=== PATIENT | male | born 1970 | race Caucasian/White ===

== ENCOUNTER 2017-06-26 22:51 | Emergency (ER) | payer BC, OTHER ==
[~2017-06-26] VITALS: Ht 175.3 cm; Wt 90.9 kg
[2017-06-26] MEDS ORDERED: NAPR500T3 PO (23:09)
[2017-06-26] MEDS ORDERED: ROBA500T PO (23:09)
[2017-06-26] MEDS ORDERED: CYCL10TA PO (23:09)
[2017-06-26] MEDS ORDERED: METH1TAB40 PO (23:09)
[2017-06-26] MEDS ORDERED: DICL1GEL3 TD (23:13)
[2017-06-26] MEDS ORDERED: KETOROLAC 30 MG/ML VIAL (J1885) IV ONE (23:45)
[2017-06-27] MEDS ORDERED: PERC5TAB12 PO (01:08)
[2017-06-27] MEDS ORDERED: OXYCODONE/APAP 5MG/325MG(BULK FOR ED) 1 TABLET PO ONE (01:15)
[2017-06-27 01:23] VITALS: BP 120/70
== END 2017-06-27 01:24 | disposition home or self-care (01) ==
LOC: M ED 22:51 → EDBD 22:51 → M ED 06-27 01:24
DX: M54.5 Low back pain (principal); Z87.891 Personal history of nicotine dependence
CPT/HCPCS: 96374; 96375; 99283; J1885; J3360

== ENCOUNTER → 2017-12-14 | Outpatient (REF) | payer BC, OTHER | LOC: M LAB REF 18:00 | DX: D23.11 Other benign neoplasm of skin of right eyelid, including canthus (principal); L72.0 Epidermal cyst | CPT/HCPCS: 88304 ==

== ENCOUNTER → 2018-11-06 | Outpatient (REF) | payer OTHER ==
[~2018-11-06] MED LIST: CYCL10TA PO; DICL1GEL3 TD; METH1TAB40 PO; NAPR-885 PO; PERC5TAB12 PO; ROBA500T PO
[2018-11-06 21:06] LABS: CHLAMYDIA DNA AMPLIFICATION NEGATIVE (NEGATIVE); GC DNA AMPLIFICATION NEGATIVE (NEGATIVE)
== END ==
LOC: M SFHCLERA 09:35
PROVIDERS: ATTEND Nurse Practitioner Family
DX: N48.89 Other specified disorders of penis (principal)

== ENCOUNTER 2019-01-03 07:53 | Day surgery (SDC) | payer BC, OTHER ==
[~2019-01-03] VITALS: Ht 175.3 cm; Wt 95.4 kg
[2019-01-03] MEDS ORDERED: NS 1,000 ML IV ONE (08:15)
[2019-01-03] MEDS ORDERED: VITAD1000T PO (08:39)
[2019-01-03] MEDS ORDERED: PROPOFOL 200 MG/20 ML VIAL As Ordered ONE ×2 (09:09→09:38)
--- NOTE | 2019-01-03 09:32 | ROOR ---
Patient Name: Van Link Procedure Date: 01/03/2019 9:14 AM Date of : 1970 Age: 48 Room: [facility] Gender: Male Note Status: Finalized Procedure: Total Colonoscopy to Cecum + Biopsy Polypectomy Indications: Colon cancer screening in patient at increased risk: Family history of 1st-degree relative with colon polyps Providers: David Umanzor MD Referring MD: JAYESH SHAH JR, MD Requesting Provider: Medicines: Monitored Anesthesia Care Complications: No immediate complications. Procedure: Pre-Anesthesia Assessment: - The heart rate, respiratory rate, oxygen saturations, blood pressure, adequacy of pulmonary ventilation, and response to care were monitored throughout the procedure. The Colonoscope was introduced through the anus and advanced to the cecum, identified by appendiceal orifice and ileocecal valve. The colonoscopy was performed without difficulty. The patient tolerated the procedure well. The quality of the bowel preparation was excellent. Findings: The perianal and digital rectal examinations were normal. Non-bleeding internal hemorrhoids were found during retroflexion. The hemorrhoids were small and Grade I (internal hemorrhoids that do not prolapse). A small polyp was found at 50 cm proximal to the anus. The polyp was sessile. The polyp was removed with a jumbo cold forceps. Resection and retrieval were complete. The exam was otherwise without abnormality on direct and retroflexion views. Impression: - Non-bleeding internal hemorrhoids. - One small polyp at 50 cm proximal to the anus, removed with a jumbo cold forceps. Resected and retrieved. - The examination was otherwise normal on direct and retroflexion views. - The exam was otherwise normal to the cecum. Recommendation: - Patient has a contact number available for emergencies. The signs and symptoms of potential delayed complications were discussed with the patient. Return to normal activities tomorrow. Written discharge instructions were provided to the patient. - High fiber diet. - Discharge patient to home. - Continue present medications. - Await pathology results. - Telephone GI clinic for pathology results in 1 week. - Return to referring physician. - Repeat colonoscopy in 5 years for surveillance based on pathology results. - Return to referring physician. - Check Portal Online for Path Results.([email or web address] - The findings and recommendations were discussed with the patient's family. David Umanzor MD David Umanzor MD 01/03/2019 9:32:13 AM Electronically signed by David Umanzor MD Number of Addenda: 0 Note Initiated On: 01/03/2019 9:14 AM Estimated Blood Loss: Estimated blood loss: none.
[2019-01-03 09:59] VITALS: BP 146/99
== END 2019-01-03 10:06 | disposition home or self-care (01) ==
LOC: M OPP 07:53
PROVIDERS: ATTEND Internal Medicine Gastroenterology
DX: K63.5 Polyp of colon (principal); K64.0 First degree hemorrhoids; Z12.11 Encounter for screening for malignant neoplasm of colon; Z83.71 Family history of colonic polyps

== ENCOUNTER → 2021-09-17 | Outpatient (CLI) | payer BC, OTHER ==
[~2021-09-17] MED LIST changes: +CHOL100029 PO; +CYCL-707 PO; -CYCL10TA PO; +METH-1164 PO; -METH1TAB40 PO
--- NOTE | 2021-09-17 09:00 | REP ---
INDICATION: ELEVATED LFT'S. COMPARISON: None TECHNIQUE: Real-time sonographic evaluation of the right upper quadrant with Doppler FINDINGS: Multiple ultrasonographic images of the liver show diffuse increased echoes throughout the hepatic parenchyma without evidence of a mass or ductal dilatation. The common bile duct measures approximately 6 mm in its greatest transverse dimension. Multiple ultrasonographic images of the gallbladder show no focal or diffuse gallbladder wall thickening. There are no echogenic foci within the gallbladder lumen, which casts acoustic shadows. There is no pericholecystic edema. Images of the pancreatic region show no gross abnormality. The imaged portion of the right kidney is unremarkable. IMPRESSION: Fatty infiltration of the liver. Accredited by the [employer] in General Ultrasound. <Electronically signed by Salvatore Umaña > 09/17/21 0845
== END ==
LOC: M RAD 08:05
PROVIDERS: ATTEND Internal Medicine
DX: K76.0 Fatty (change of) liver, not elsewhere classified (principal); R74.01 Elevation of levels of liver transaminase levels

== ENCOUNTER → 2021-11-04 | Outpatient (REF) | payer BC, OTHER ==
[2021-11-04 12:55] LABS: FERRITIN 1148 NG/ML (26-388); IRON (FE) 243 UG/DL (65-175); PERCENT SATURATION 77.6 % (19.7-50.0); TOTAL IRON BINDING CAPACITY 313 UG/DL (250-450)
[2021-11-04 13:15] LABS: HEPATITIS B SURFACE ANTIGEN NEGATIVE (NEGATIVE)
[2021-11-04 13:42] LABS: HEPATITIS B CORE ANTIBODY IGM NEGATIVE (NEGATIVE); HEPATITIS C VIRUS ABY INDEX 0.1 INDEX (<0.8)
== END ==
LOC: M LAB REF 11:47
PROVIDERS: ATTEND Internal Medicine
DX: R74.01 Elevation of levels of liver transaminase levels (principal)

== ENCOUNTER → 2022-08-31 | Outpatient (CLI) | payer BC, OTHER | LOC: M WUC 08:15 | PROVIDERS: ATTEND Physician Assistant Medical | DX: R07.81 Pleurodynia (principal) ==

== ENCOUNTER → 2022-09-01 | Outpatient (REF) | payer BC, OTHER ==
[2022-09-01 13:54] LABS: FERRITIN 913.3 NG/ML (10.5-307.3)
[2022-09-01 14:21] LABS: PERCENT SATURATION 28.8 % (19.7-50.0)
== END ==
LOC: M LAB REF 12:24
PROVIDERS: ATTEND Internal Medicine
DX: R74.01 Elevation of levels of liver transaminase levels (principal)

== ENCOUNTER → 2022-09-16 | Outpatient (CLI) | payer BC, OTHER | LOC: M RAD 06:46 | PROVIDERS: ATTEND Internal Medicine | DX: K76.0 Fatty (change of) liver, not elsewhere classified (principal) ==

== ENCOUNTER → 2023-06-02 | Outpatient (REF) | payer BC, OTHER ==
[~2023-06-02] MED LIST changes: +DICL100G10 TD; -DICL1GEL3 TD
[2023-06-02 13:01] LABS: FERRITIN 676.3 NG/ML (10.5-307.3); PERCENT SATURATION 68.6 % (19.7-50.0)
== END ==
LOC: M LAB REF 11:56
PROVIDERS: ATTEND Internal Medicine
DX: R74.01 Elevation of levels of liver transaminase levels (principal)

== ENCOUNTER → 2023-11-25 | Outpatient (REF) | payer BC, OTHER ==
[2023-11-25 13:34] LABS: PERCENT SATURATION 94.4 % (19.7-50.0)
[2023-11-25 13:37] LABS: FERRITIN 564.3 NG/ML (10.5-307.3)
== END ==
LOC: M LAB REF 11:47
PROVIDERS: ATTEND Internal Medicine
DX: R74.01 Elevation of levels of liver transaminase levels (principal); D50.9 Iron deficiency anemia, unspecified